=== PATIENT | female | born 1975 | race Caucasian/White ===

== ENCOUNTER → 2024-05-10 12:04 | Outpatient (BNVA) | payer MEDICAID, SELFPAY | PROVIDERS: Family Provider Family Medicine; PCP Family Medicine; Visit Provider Nurse Practitioner Women's Health | DX: R10.2 Pelvic and perineal pain (principal); N83.202 Unspecified ovarian cyst, left side | CPT/HCPCS: 76830 ==

== ENCOUNTER → 2024-05-23 14:37 | Outpatient (BNVA) | payer MEDICAID, SELFPAY | PROVIDERS: Family Provider Family Medicine; PCP Family Medicine; Visit Provider Nurse Practitioner Women's Health | DX: R30.0 Dysuria (principal) | CPT/HCPCS: 81000; 87086 ==

== ENCOUNTER 2024-10-27 11:04 | Emergency (ER) | payer BC, MEDICAID, SELFPAY ==
--- NOTE | 2024-10-27 11:28 | XR_ITS ---
WS: [id number] XR elbow LT min 3V* [id number] REASON FOR EXAM: injury FINDINGS: No joint effusion. No acute fracture identified. Joint spaces of the elbow are intact and well preserved. XR/XR elbow LT min 3V* [id number] IMPRESSION: No acute abnormality.
[2024-10-27 12:09] VITALS: BP 119/76; PULSE 77; RESP 16; TEMP 36.7; O2SAT 99; BMI 31.3
--- NOTE | 2024-10-27 12:20 | W.ED.UPPEXIN ---
HPI - Extremity Injury (Upper) General: Chief Complaint: Extremity Injury, Upper Stated Complaint: left elbow pain/fall Time Seen by Provider: 10/27/24 12:11 Source: patient Mode of arrival: ambulatory Limitations: no limitations History of Present Illness: Patient is a 49-year-old female presents to ED today for evaluation of a left elbow injury that she sustained a few days ago after slipping on a set of stairs. She states she landed directly onto the left elbow. There is no other injuries or complaints at this time. Denies striking her head or LOC. No neck or back pain. MD complaint: injury to: left and elbow Onset (ago): day(s) Other Extremity Injury: Left: elbow Other injuries: none Place: home Severity: mild Relieving factors: none Exacerbating factors: none Context: fall and direct blow Associated symptoms: Reports no associated symptoms; Denies neck pain or weakness in extremities Related Data Home Medications Medication Instructions Recorded Confirmed gabapentin 300 mg capsule 300 mg PO TID 05/03/24 05/23/24 rimegepant 75 mg disintegrating mg PO PRN 05/03/24 05/23/24 tablet (Nurtec ODT) Previous Rx's Medication Instructions Recorded azithromycin 500 mg tablet See Rx Instructions PO .COMPLEX #3 05/30/24 tabs Allergies Allergy/AdvReac Type Severity Reaction Status Date / Time Penicillins Allergy Unknown Unknown Verified 05/23/24 13:51 Review of Systems Musc: Reports: joint pain; Denies: neck pain, back pain, extremity pain, extremity swelling or joint swelling Neuro: Denies: numbness in extremities, weakness in extremities or sensory changes PFS ED PFSH: Family History Denies family history of Colon cancer Ovarian cancer Diabetes Heart disease Hyperlipidemia Breast cancer Hypertension Uterine cancer Thyroid disease Stroke Social History Smoking and tobacco/nicotine status: never used tobacco/nicotine Physical Exam Const: COMMON NORMALS: no acute distress, average body habitus, no limitations, healthy appearing, alert and well nourished Back/Pelvis: COMMON NORMALS: thoracic and lumbar spine normal to inspection Extremity: COMMON NORMALS: normal to inspection, full ROM, capillary refill normal, no joint enlargement and no clubbing, cyanosis or edema GENERAL: Yes normal exam except as noted LEFT UPPER EXTREMITY: Yes elbow joint Left elbow: Yes inspection (Normal gross inspection), Yes palpation (Mild tenderness to palpation. No edema), Yes ROM (Normal) and Yes neurovascular exam (Normal) Neuro: COMMON NORMALS: moves all extremities, no focal motor deficits and no sensory deficits noted SENSORIUM/ORIENTATION: Yes alert Skin: TRAUMA: no lacerations or abrasions Course Vital Signs: Vital signs: Vital Signs Temperature 98.1 F 10/27/24 12:09 Pulse Rate 77 10/27/24 12:09 Respiratory Rate 16 10/27/24 12:09 Blood Pressure 119/76 10/27/24 12:09 Pulse Oximetry 99 10/27/24 12:09 Oxygen Delivery Me thod Room Air 10/27/24 12:09 MDM - Extremity Injury (Upper) Medical Decision Making I do not visualize any fractures on patient's x-ray. She will be allowed discharge. Recommend follow-up with primary care in 1 to 2 weeks if symptoms do not seem to be improving. Lab Data Radiology Impressions Elbow X-Ray 10/27/24 11:28 IMPRESSION: No acute abnormality. All radiology interpretation(s) finalized by discharge Discharge Plan Discharge Patient Disposition: Home Clinical Impression: Contusion of left elbow Qualifiers: Encounter type: initial encounter Qualified Code(s): S50.02XA - Contusion of left elbow, initial encounter Condition: Stable Prescriptions: No Action Nurtec ODT 75 mg tablet,disintegrating PO PRN gabapentin 300 mg capsule 300 mg PO TID azithromycin 500 mg tablet See Rx Instructions PO .COMPLEX Qty: 3 0RF Rx Instructions: For 500 mg dose pack: take 500 mg once daily for 3 days PO Discharge Orders: Discharge ED (Routine); Ordered 10/27/24 Ordered By: Darby Gilmore Patient Instructions: Contusion Coding Level of Care Code ED Set Up Worker for Chin Mabry
== END 2024-10-27 12:51 | disposition home or self-care (01) ==
PROVIDERS: Emergency Provider Physician Assistant
DX: S50.02XA Contusion of left elbow, initial encounter (principal); W01.0XXA Fall on same level from slipping, tripping and stumbling without subsequent striking against object, initial encounter
CPT/HCPCS: 73080; 99283